=== PATIENT | female | born 1990 | race African-American/Black ===

== ENCOUNTER → 2021-02-20 | Emergency (ER) | payer SELFPAY ==
[~2021-02-20] VITALS: Ht 162.6 cm; Wt 60.4 kg
[2021-02-20 13:11] VITALS: BP 116/80
== END | disposition left against medical advice (07) ==
LOC: ER 13:04
DX: K08.89 Other specified disorders of teeth and supporting structures (principal); R51.9 Headache, unspecified; Z53.21 Procedure and treatment not carried out due to patient leaving prior to being seen by health care provider

== ENCOUNTER 2021-02-21 13:44 | Emergency (ER) | payer SELFPAY ==
[~2021-02-21] VITALS: Ht 162.6 cm; Wt 54.5 kg
[2021-02-21 13:59] VITALS: BP 141/79
[2021-02-21] MEDS ORDERED: IBUPROFEN 600 MG TABLET. PO ONE (14:45)
--- NOTE | 2021-02-21 14:46 | PHYS DOC ---
Past History Past Surgical History: No Surgical History (DELANO FISCHER APRN) Alcohol Use: Occasionally (DELANO FISCHER APRN) General Adult EDM: Chief Complaint: MULTIPLE COMPLAINTS HPI: HPI: Patient is a 30-year-old female presents with nasal congestion, sinus pressure, sore throat. Patient denies fever, nausea/vomiting/diarrhea. Patient requesting to be tested for Covid as well due to possible exposure. Afebrile. Denies taking anything gion-lek-epjxnrz to treat symptoms. No health history. (DELANO FISCHER APRN) Review of Systems: Review of Systems: ROS At least 10 ROS systems have been reviewed and are negative except as documented in the HPI. General: Negative except as outlined in HPI above. Skin: Negative except as outlined in HPI above. HEENT: Negative except as outlined in HPI above. Neck: Negative except as outlined in HPI above. Respiratory: Negative except as outlined in HPI above.. Cardiovascular: Negative except as outlined in HPI above. Abdomen: Negative except as outlined in HPI above. : Negative except as outlined in HPI above. Back/MSK: Negative except as outlined in HPI above. Neuro: Negative except as outlined in HPI above. Psych: Negative except as outlined in HPI above. (DELANO FISCHER APRN) Allergies: Allergies: Allergies Coded Allergies Type Severity Reaction Last Updated Verified No Known Drug Allergies 02/20/21 No (DELANO FISCHER APRN) Physical Exam: PE: Constitutional: Well developed, well nourished, no acute distress, non-toxic appearance. [] HENT: Normocephalic, atraumatic, bilateral external ears normal, oropharynx moist, no oral exudates, pharynx red, nasal congestion Eyes: PERRLA, EOMI, conjunctiva normal, no discharge. [] Neck: Normal range of motion, no tenderness, supple, no stridor. [] Cardiovascular:Heart rate regular rhythm, no murmur [] Lungs & Thorax: Bilateral breath sounds clear to auscultation [] Abdomen: Bowel sounds normal, soft, no tenderness, no masses, no pulsatile masses. [] Skin: Warm, dry, no erythema, no rash. [] Back: No tenderness, no CVA tenderness. [] Extremities: No tenderness, no cyanosis, no clubbing, ROM intact, no edema. [] Neurologic: Alert and oriented X 3, normal motor function, normal sensory function, no focal deficits noted. [] Psychologic: Affect normal, judgement normal, mood normal. [] (DELANO FISCHER APRN) Current Patient Data: Vital Signs: Vital Signs Date Time Temp Pulse Resp B/P (MAP) Pulse Ox O2 Delivery O2 Flow Rate FiO2 02/21/21 13:59 98.0 89 18 141/79 (99) 97 Room Air (DELANO FISCHER APRN) EKG: EKG: [] (DELANO FISCHER APRN) Radiology/Procedures: Radiology/Procedures: [] (DELANO FISCHER APRN) Heart Score: C/O Chest Pain: No Risk Factors: Risk Factors: DM, Current or recent (<one month) smoker, HTN, HLP, family history of CAD, obesity. Risk Scores: Score 0 - 3: 2.5% MACE over next 6 weeks - Discharge Home Score 4 - 6: 20.3% MACE over next 6 weeks - Admit for Clinical Observation Score 7 - 10: 72.7% MACE over next 6 weeks - Early Invasive Strategies (DELANO FISCHER APRN) Course & Med Decision Making: Course & Med Decision Making Pertinent Labs and Imaging studies reviewed. (See chart for details) [] 1-year-old female presents with sore throat, nasal congestion. Patient requesting to be tested for Covid. Patient tested for strep throat. Mucinex, Motrin given. Patient refused Covid test once RN was attempting to swab. Rapid strep was negative. Discussed with patient fczo-lwd-[id number] medications to purchase. Warm salt water gargles. Motrin and Tylenol. (DELANO FISCHER APRN) Course & Med Decision Making I was the Attending physician on the above date of service of this patient. This patient was evaluated, examined, treated, and dispositioned from the emergency department by the mid-level practitioner. Although I was working at the time , no assistance was requested. Electronically signed, Calderon Castellano DO (CALDERON CASTELLANO DO) Anamaria Disclaimer: Anamaria Disclaimer: This electronic medical record was generated, in whole or in part, using a voice recognition dictation system. (DELANO FISCHER APRN) Departure Departure: Impression: Primary Impression: Sore throat Additional Impression: Nasal congestion with rhinorrhea Disposition: 01 HOME / SELF CARE / HOMELESS Condition: STABLE Referrals: PCP,NO (PCP) Patient Instructions: Sinusitis, Sore Throat, Wmml-gl-Fibr Additional Instructions: You are seen in the emergency room with sore throat, sinus pressure. You had requested a Covid test but once she tried to obtain you refused. We checked you for strep throat which was negative. You most likely have a viral infection. You can treat symptoms with qtkd-kwi-bzosazq medications like we discussed. Symptoms will take time to resolve. Mucinex DM, throat lozenges, Motrin and Tylenol, Afrin, warm salt water gargles. If symptoms do not improve follow-up with your PCP. Return to emergency room with worsening symptoms or concerns. EMERGENCY DEPARTMENT GENERAL DISCHARGE INSTRUCTIONS Thank you for coming to [facility] (ED) today and trusting us with you care. We trust that you had a positivie experience in our Emergency Department. If you wish to speak to the department management, you may call the director at [phone]. YOUR FOLLOW UP INSTRUCTIONS ARE FOLLOWS: 1. Do you have a private Doctor? If you do not have a private doctor, please ask for a resource list of physicians or clinics that may be able to assist you with follow up care. 2. The Emergency Physician has interpreted your x-rays. The X-Ray specialist will also review them. If there is a change in the findings, you will be notified in 48 hours when at all possible. 3. A lab test or culture has been done, your results will be reviewed and you will be notified if you need a change in treatment. ADDITIONAL INSTRUCTIONS AND INFORMATION: 1. Your care today has been supervised by a physician who is specially trained in emergency care. Many problems require more than one evaluation for a complete diagnosis and treatment. We recommend that you schedule your follow up appointment as recommended to ensure complete treatment of you illness or injury. If you are unable to obtain follow up care and continue to have a problem, or if your condition worsens, we recommend that you return to the ED. 2. We are not able to safely determine your condition over the phone nor are we able to give sound medical advice over the phone. For these safety reasons, if you call for medical advice we will ask you to come to the ED for further evaluation. 3. If you have any questions regarding these discharge instructions please call the ED at [phone]. SAFETY INFORMATION: In the interest of safety, wellness, and injury prevention; we encourage you to wear your sealbelt, if you smoke; quite smoking, and we encourage family to use a protective helmet for bicycling and other sporting events that present an increased risk for head injury. IF YOUR SYMPTOMS WORSEN OR NEW SYMPTOMS DEVELOP, OR YOU HAVE CONCERNS ABOUT YOUR CONDITION; OR IF YOUR CONDITION WORSENS WHILE YOU ARE WAITING FOR YOUR FOLLOW UP APPOINTMENT; EITHER CONTACT YOUR PRIMARY CARE DOCTOR, THE PHYSICIAN WHOSE NAME AND NUMBER YOU WERE GIVEN, OR RETURN TO THE ED IMMEDIATELY. DELANO FISCHER APRN Feb 21, 2021 14:46 CALDERON CASTELLANO DO Feb 25, 2021 13:09
[2021-02-21] MEDS ORDERED: guaiFENesin DM 600/30MG 1 TAB TAB.ER.12H PO ONE (15:00)
== END 2021-02-21 15:10 | disposition home or self-care (01) ==
LOC: ER 13:44
DX: J02.9 Acute pharyngitis, unspecified (principal); J34.89 Other specified disorders of nose and nasal sinuses
CPT/HCPCS: 87070; 87880; 99283-25